=== PATIENT | female | born 1975 | race Caucasian/White ===

== ENCOUNTER → 2020-02-19 | Outpatient (CLI) | payer OTHER | LOC: SJCVCIMAG 12:19 | DX: R07.9 Chest pain, unspecified (principal); E78.5 Hyperlipidemia, unspecified ==

== ENCOUNTER → 2020-08-31 | Outpatient (CLI) | payer OTHER | LOC: LAB 08:31 | PROVIDERS: ATTEND Nurse Practitioner | DX: Z20.828 Contact with and (suspected) exposure to other viral communicable diseases (principal) ==